=== PATIENT | female | born 1995 | race African-American/Black ===

== ENCOUNTER 2020-03-22 14:54 | Emergency (ER) | payer SELFPAY ==
[2020-03-22 16:16] LABS: Urine Blood 3+ (NEG); Urine Glucose NEGATIVE (NEG); Urine Protein 2+ (NEG); Urine Specific Gravity 1.025 (1.005-1.030); Urine pH 5.5 (5.0-7.0)
[2020-03-22 16:17] LABS: Urine Specific Gravity 1.025 (1.005-1.030)
--- NOTE | 2020-03-22 17:04 | ER ---
Nurse's Notes [facility] Name: Lexie Matias Age: 24 yrs Sex: Female : 1995 Arrival Date: 03/22/2020 Time: 14:58 Bed 28 Private MD: Diagnosis: Irregular menstruation, unspecified Presentation: 03/22 15:18 Chief complaint: Patient states: I have been on my period for 2 weeks. I am starting to ca1 see clots, like big clots I have never seen before. I have irregular periods but they're never this long. Coronavirus screen: Client denies travel out of the [place] in the last 14 days. At this time, the client does not indicate any symptoms associated with coronavirus-19. Ebola Screen: Patient negative for fever greater than or equal to 101.5 degrees Fahrenheit, and additional compatible Ebola Virus Disease symptoms Patient denies exposure to infectious person. Patient denies travel to an Ebola-affected area in the 21 days before illness onset. No symptoms or risks identified at this time. Initial Sepsis Screen: Does the patient meet any 2 criteria? No. Patient's initial sepsis screen is negative. Does the patient have a suspected source of infection? No. Patient's initial sepsis screen is negative. Risk Assessment: Do you want to hurt yourself or someone else? Patient reports no desire to harm self or others. Onset of symptoms was March 22, 2020. 15:18 Method Of Arrival: Ambulatory ca1 15:18 Acuity: DEBBIE 3 ca1 Triage Assessment: 16:40 General: Appears in no apparent distress. Behavior is calm, cooperative. 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 - Social history:: Smoking status: . Screenin:14 Abuse screen:. Nutritional screening: No deficits noted. Tuberculosis screening: No iw symptoms or risk factors identified. Fall Risk None identified. Assessment: 16:30 General: Appears in no apparent distress. Behavior is calm, cooperative. Pain: Denies iw pain. Neuro: No deficits noted. Level of Consciousness is awake, alert, obeys commands, Oriented to person, place, time, situation, Moves all extremities. Full function. Cardiovascular: Patient's skin is warm and dry. Respiratory: Airway is patent Respiratory effort is even, unlabored, Respiratory pattern is regular, symmetrical. : Reports vaginal bleeding that is. Derm: Skin is intact, is healthy with good turgor. Musculoskeletal: Range of motion: intact in all extremities. Vital Signs: 15:18 BP 121 / 84; Pulse 68; Resp 18 S; Temp 97.8(TE); Pulse Ox 100% on R/A; Weight 99.79 kg ca1 (R); Height 5 ft. 2 in. (157.48 cm) (R); Pain 0/10; 15:18 Body Mass Index 40.24 (99.79 kg, 157.48 cm) ca1 ED Course: 14:58 Patient arrived in ED. as 15:05 Livia Valencia FNP-C is PHCP. kb 15:05 Jacinto Coppola MD is Attending Physician. kb 15:18 Arm band placed on right wrist. ca1 15:19 Triage completed. ca1 16:17 Patient taken to ultrasound. via wheelchair. is 16:19 Breonna Woody, RN is Primary Nurse. iw 16:30 Patient has correct armband on for positive identification. iw 16:43 Ultrasound completed. Patient tolerated well. is 16:43 Patient moved back from ultrasound. is 17:14 No provider procedures requiring assistance completed. Patient did not have IV access iw during this emergency room visit. Administered Medications: No medications were administered Outcome: 17:03 Discharge ordered by MD. kb 17:14 Discharged to home ambulatory. iw 17:14 Condition: good 17:14 Discharge instructions given to patient, Instructed on discharge instructions, follow up and referral plans. Demonstrated understanding of instructions, follow-up care. 17:15 Patient left the ED. iw Signatures: Livia Valencia FNP-C FNP-Julia Melendez as Breonna Woody RN RN iw Charlene Hawkins RN RN ca1 Barbara, Shameka is Corrections: (The following items were deleted from the chart) 15:20 15:18 Chief complaint: Patient states: I have been on my period for 2 weeks. I am ca1 starting to see clots, like big clots I have never seen before. ca1
--- NOTE | 2020-03-22 17:04 | EDPHYS ---
Physician Documentation [facility] Name: Lexie Matias Age: 24 yrs Sex: Female : 1995 Arrival Date: 03/22/2020 Time: 14:58 Bed 28 Private MD: ED Physician Jacinto Coppola HPI: 03/22 17:01 This 24 yrs old Black Female presents to ER via Ambulatory with complaints of Vaginal kb Bleeding. 17:01 The patient presents with vaginal bleeding that is light, with clots. Onset: The kb symptoms/episode began/occurred 2 week(s) ago. Modifying factors: The symptoms are alleviated by nothing, the symptoms are aggravated by nothing. Associated signs and symptoms: Pertinent positives: vaginal bleeding, Pertinent negatives: constipation, cramping, diarrhea, dyspareunia, dysuria, fever, hematuria, nausea, urinary frequency, vaginal discharge, vomiting. Severity of symptoms: At their worst the symptoms were moderate, in the emergency department the symptoms are unchanged. The patient is sexually active. The patient has not experienced similar symptoms in the past. The patient has not recently seen a physician. 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 - Social history:: Smoking status: . ROS: 17:00 Constitutional: Negative for fever, chills, and weight loss, Cardiovascular: Negative kb for chest pain, palpitations, and edema, Respiratory: Negative for shortness of breath, cough, wheezing, and pleuritic chest pain, Abdomen/GI: Negative for abdominal pain, nausea, vomiting, diarrhea, and constipation, MS/Extremity: Negative for injury and deformity, Skin: Negative for injury, rash, and discoloration, Neuro: Negative for headache, weakness, numbness, tingling, and seizure. 17:00 : Positive for vaginal bleeding. Exam: 16:59 Constitutional: This is a well developed, well nourished patient who is awake, alert, kb and in no acute distress. Chest/axilla: Normal chest wall appearance and motion. Nontender with no deformity. No lesions are appreciated. Cardiovascular: Regular rate and rhythm with a normal S1 and S2. No gallops, murmurs, or rubs. Normal PMI, no JVD. No pulse deficits. Respiratory: Lungs have equal breath sounds bilaterally, clear to auscultation and percussion. No rales, rhonchi or wheezes noted. No increased work of breathing, no retractions or nasal flaring. Abdomen/GI: Soft, non-tender, with normal bowel sounds. No distension or tympany. No guarding or rebound. No evidence of tenderness throughout. Skin: Warm, dry with normal turgor. Normal color with no rashes, no lesions, and no evidence of cellulitis. MS/ Extremity: Pulses equal, no cyanosis. Neurovascular intact. Full, normal range of motion. Neuro: Awake and alert, GCS 15, oriented to person, place, time, and situation. Cranial nerves II-XII grossly intact. Motor strength 5/5 in all extremities. Sensory grossly intact. Cerebellar exam normal. Normal gait. Vital Signs: 15:18 BP 121 / 84; Pulse 68; Resp 18 S; Temp 97.8(TE); Pulse Ox 100% on R/A; Weight 99.79 kg ca1 (R); Height 5 ft. 2 in. (157.48 cm) (R); Pain 0/10; 15:18 Body Mass Index 40.24 (99.79 kg, 157.48 cm) ca1 MDM: 16:19 Patient medically screened. kb 16:59 Data reviewed: vital signs, nurses notes. Data interpreted: Pulse oximetry: on room air kb is 100 %. Interpretation: normal. Counseling: I had a detailed discussion with the patient and/or guardian regarding: the historical points, exam findings, and any diagnostic results supporting the discharge/admit diagnosis, lab results, radiology results, the need for outpatient follow up, an OB/Gyne specialist, to return to the emergency department if symptoms worsen or persist or if there are any questions or concerns that arise at home. 03/22 15:31 Order name: Urine --Ancillary (enter results) kb 03/22 15:32 Order name: Urine Dipstick--Ancillary (enter results) kb 03/22 15:20 Order name: Urine Test (obtain specimen); Complete Time: 17:02 kb 03/22 15:31 Order name: US Transvaginal Study (Probe) kb 03/22 16:17 Order name: Urine Dipstick-Ancillary; Complete Time: 16:18 [facility] 03/22 16:17 Order name: Urine --Ancillary; Complete Time: 16:18 [facility] 03/22 15:20 Order name: Urine Dipstick-Ancillary (obtain specimen); Complete Time: 17:02 Administered Medications: No medications were administered Disposition: 17:45 Co-signature as Attending Physician, Jacinto Coppola MD. rn Disposition: 03/22/20 17:03 Discharged to Home. Impression: Irregular menstruation, unspecified. - Condition is Stable. - Discharge Instructions: Abnormal Uterine Bleeding, [id number]. - Medication Reconciliation Form, Thank You Letter, Antibiotic Education, Prescription Opioid Use form. - Follow up: Emergency Department; When: As needed; Reason: Worsening of condition. Follow up: Private Physician; When: 2 - 3 days; Reason: Recheck today's complaints, Continuance of care, Re-evaluation by your physician. Signatures: Dispatcher [employer] [facility] Livia Valencia, HOT TAMALE MAN-C HOT TAMALE MAN-Ckb Breonna Woody RN RN Jacinto Montiel MD MD actuarial internship: (The following items were deleted from the chart) 17:15 17:03 03/22/2020 17:03 Discharged to Home. Impression: Irregular menstruation, iw unspecified. Condition is Stable. Discharge Instructions: Abnormal Uterine Bleeding, [id number]. Forms are Medication Reconciliation Form, Thank You Letter, Antibiotic Education, Prescription Opioid Use. Follow up: Emergency Department; When: As needed; Reason: Worsening of condition. Follow up: Private Physician; When: 2 - 3 days; Reason: Recheck today's complaints, Continuance of care, Re-evaluation by your physician. kb
--- NOTE | 2020-03-22 17:37 | RAD REPORT ---
EXAM DESCRIPTION: US - Transvaginal Study Probe - 03/22/2020 4:43 pm CLINICAL HISTORY: Heavy vaginal bleeding COMPARISON: none FINDINGS: The uterus measures 9 x 4 x 5cm. A fibroid is not seen. The endometrial stripe measures 6 millimeters. 2.5 centimeter multilocular cystic mass is present within the cervix. Most of the cysts vary in size 2-4 millimeters The ovaries are normal in size and echotexture. The right and left adnexa unremarkable No significant free fluid is seen. IMPRESSION: 2.5 centimeter multilocular cystic mass within the cervix may represent adenoma malignum or a benign process
[2020-03-25 21:43] VITALS: BP 121/84; TEMP 97.8; O2SAT 100
== END 2020-03-22 17:15 | disposition home or self-care (01) ==
LOC: ER 14:54
DX: N92.6 Irregular menstruation, unspecified (principal)
CPT/HCPCS: 76830; 81003; 81025; 99284

== ENCOUNTER 2020-10-30 21:12 | Emergency (ER) | payer BC, SELFPAY ==
--- OUTSIDE RECORDS SUMMARY | 2020-10-30 21:14 | XMS REPORT | Continuity of Care Document ---
:1995 Author Organization [facility] t Address [address] [place] [address] Care Team Providers Name Role Phone Aakash Rosas DO Attending Clinician John Martin Attending Clinician Problems This patient has no known problems. Allergies, Adverse Reactions, Alerts This patient has no known allergies or adverse reactions. Medications This patient has no known medications. Procedures This patient has no known procedures. 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
[2020-10-31 01:43] LABS: Urine Blood Negative (Negative); Urine Glucose Negative (Negative); Urine Protein Negative (Negative); Urine Specific Gravity 1.025 (1.005-1.030)
[2020-10-31] MEDS ORDERED: NA CHLORIDE 0.9% 1,000 ML ONE (01:49)
[2020-10-31 01:56] LABS: Barbiturates NEGATIVE (NEGATIVE); Benzodiazepines NEGATIVE (NEGATIVE); Cocaine NEGATIVE (NEGATIVE); METHAMPHETAM NEGATIVE (NEGATIVE); Methadone NEGATIVE (NEGATIVE); Opiates NEGATIVE (NEGATIVE); Phencyclidine NEGATIVE (NEGATIVE); THC Cannibis NEGATIVE (NEGATIVE)
[2020-10-31 02:14] LABS: ALT/SGPT 66 U/L (12-78); AST/SGOT 30 U/L (15-37); Alkaline Phosphatase 78 U/L (45-117); BUN Blood Urea Nitrogen 15 mg/dL (7-18); Bicarbonate 28 mmol/L (21-32); Bilirubin Direct < 0.1 mg/dL (0-0.2); Bilirubin Total 0.2 mg/dL (0.2-1.0); Glucose Level 89 mg/dL (74-106); Potassium 3.6 mmol/L (3.5-5.1); Protein, Total 7.8 g/dL (6.4-8.2); Sodium Level 142 mmol/L (136-145)
[2020-10-31 02:30] LABS: Absolute Lymphocytes (CBC) 3.9 K/uL (0.7-4.9); Basophils % 0.6 % (0-1.3); Hematocrit 39.1 % (36.0-45.0); Lymphocytes % 41.4 % (15.3-44.8); MPV 8.2 fL (7.6-11.3); RBC Red Blood Cell Count 4.55 M/uL (3.86-4.86)
--- NOTE | 2020-10-31 03:18 | EDPHYS ---
Physician Documentation [facility] Name: Lexie Matias Age: 25 yrs Sex: Female : 1995 Arrival Date: 10/30/2020 Time: 21:26 Bed 17 Private MD: ED Physician Roshan Louis HPI: 10/31 01:29 This 25 yrs old Black Female presents to ER via Ambulatory with complaints of Dizziness.mh7 01:29 The patient presents with dizziness, lightheadedness. Onset: The symptoms/episode mh7 began/occurred 1 week(s) ago. Context: occurred at an unknown location, occurred while the patient was standing. Modifying factors: The symptoms are alleviated by nothing, the symptoms are aggravated by nothing. Associated signs and symptoms: Pertinent positives: headache, Pertinent negatives: abdominal pain, agitation, ataxia, blurred vision, chest pain, combativeness, confusion, diaphoresis, focal weakness, head injury, near-syncope, numbness, palpitations, seizure, shortness of breath, syncope, tingling, vomiting. Severity of symptoms: At their worst the symptoms were moderate 7 day(s) ago, in the emergency department the symptoms have improved moderately. Patient's baseline: Neuro: alert and fully oriented, Motor: no deficits, Ambulation: walks without assistance, Speech: normal. 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 - Social history:: Smoking status: Patient denies any tobacco usage or history of. ROS: 10/31 01:29 Constitutional: Negative for fever, chills, and weight loss, Eyes: Negative for injury, mh7 pain, redness, and discharge, ENT: Negative for injury, pain, and discharge, Neck: Negative for injury, pain, and swelling, Cardiovascular: Negative for chest pain, palpitations, and edema, Respiratory: Negative for shortness of breath, cough, wheezing, and pleuritic chest pain, Back: Negative for injury and pain, : Negative for injury, bleeding, discharge, and swelling, MS/Extremity: Negative for injury and deformity, Skin: Negative for injury, rash, and discoloration, Neuro: Negative for headache, weakness, numbness, tingling, and seizure, Psych: Negative for depression, anxiety, suicide ideation, homicidal ideation, and hallucinations, Allergy/Immunology: Negative for hives, rash, and allergies, Endocrine: Negative for neck swelling, polydipsia, polyuria, polyphagia, and marked weight changes, Hematologic/Lymphatic: Negative for swollen nodes, abnormal bleeding, and unusual bruising. Exam: 01:29 Constitutional: This is a well developed, well nourished patient who is awake, alert, mh7 and in no acute distress. Head/Face: Normocephalic, atraumatic. Eyes: Pupils equal round and reactive to light, extra-ocular motions intact. Lids and lashes normal. Conjunctiva and sclera are non-icteric and not injected. Cornea within normal limits. Periorbital areas with no swelling, redness, or edema. Neck: Trachea midline, no thyromegaly or masses palpated, and no cervical lymphadenopathy. Supple, full range of motion without nuchal rigidity, or vertebral point tenderness. No Meningismus. Chest/axilla: Normal chest wall appearance and motion. Nontender with no deformity. No lesions are appreciated. Cardiovascular: Regular rate and rhythm with a normal S1 and S2. No gallops, murmurs, or rubs. Normal PMI, no JVD. No pulse deficits. Respiratory: Lungs have equal breath sounds bilaterally, clear to auscultation and percussion. No rales, rhonchi or wheezes noted. No increased work of breathing, no retractions or nasal flaring. Abdomen/GI: Soft, non-tender, with normal bowel sounds. No distension or tympany. No guarding or rebound. No evidence of tenderness throughout. Back: No spinal tenderness. No costovertebral tenderness. Full range of motion. Skin: Warm, dry with normal turgor. Normal color with no rashes, no lesions, and no evidence of cellulitis. MS/ Extremity: Pulses equal, no cyanosis. Neurovascular intact. Full, normal range of motion. Neuro: Awake and alert, GCS 15, oriented to person, place, time, and situation. Cranial nerves II-XII grossly intact. Motor strength 5/5 in all extremities. Sensory grossly intact. Cerebellar exam normal. Normal gait. Psych: Awake, alert, with orientation to person, place and time. Behavior, mood, and affect are within normal limits. Vital Signs: 10/30 23:07 BP 134 / 86; Resp 16 S; Temp 97.1(TE); Weight 102.51 kg (R); Height 5 ft. 3 in. (160.02 bb cm) (R); Pain 0/10; 10/31 01:00 BP 110 / 78; Pulse 63; Resp 19; Pulse Ox 99% on R/A; ea 02:00 BP 105 / 66; Pulse 65; Resp 18; Pulse Ox 99% on R/A; ea 03:11 BP 94 / 59; Pulse 67; Resp 17; Pulse Ox 100% on R/A; ea 03:26 BP 100 / 58; Pulse 68; Resp 18; Pulse Ox 98% on R/A; ea 10/30 23:07 Body Mass Index 40.03 (102.51 kg, 160.02 cm) bb MDM: 03:16 Differential diagnosis: cardiac arrhythmia, hypovolemia, idiopathic dizziness, 7 near-syncope, . Data reviewed: vital signs, nurses notes, lab test result(s), CBC, electrolytes, urinalysis, urine drug screen, UPT: negative EKG, radiologic studies, CT scan. Data interpreted: Pulse oximetry: on room air is 100 %. Interpretation: normal. Counseling: I had a detailed discussion with the patient and/or guardian regarding: the historical points, exam findings, and any diagnostic results supporting the discharge/admit diagnosis, lab results, radiology results, the need for outpatient follow up, to return to the emergency department if symptoms worsen or persist or if there are any questions or concerns that arise at home. Response to treatment: the patient's symptoms have resolved after treatment, the patient's blood pressure is in an acceptable range, mental status has returned to baseline, the patient no longer shows bradycardia, the patient is not short of breath, the patient is not tachycardic, the patient's pain is gone, the patient's temperature has normalized. 03:18 Patient medically screened. [facility] 10/31 01:07 Order name: CBC with Diff; Complete Time: 02:35 [facility] 10/31 01:07 Order name: Basic Metabolic Panel; Complete Time: 02:35 [facility] 10/31 01:07 Order name: LFT's; Complete Time: 02:35 [facility] 10/31 01:07 Order name: UDS; Complete Time: 02:35 [facility] 10/31 01:33 Order name: CT Head Brain wo Cont [facility] 10/31 01:42 Order name: Urine Dipstick-Ancillary; Complete Time: 02:35 [facility] 10/31 01:07 Order name: Urine Dipstick-Ancillary (obtain specimen); Complete Time: 01:49 [facility] 10/31 01:07 Order name: Urine Test (obtain specimen); Complete Time: 01:49 [facility] 10/31 01:33 Order name: EKG - Nurse/Tech; Complete Time: 03:10 [facility] Administered Medications: 01:48 Drug: NS 0.9% 1000 ml Route: IV; Rate: 1000 ml; Site: right antecubital; bb 03:00 Follow up: Response: No adverse reaction; IV Status: Completed infusion; IV Intake: ea 1000ml Disposition Summary: 10/31/20 03:18 Discharge Ordered Location: Home [facility] Problem: an ongoing problem [facility] Symptoms: have improved [facility] Condition: Stable [facility] Diagnosis - Dizziness and giddiness [facility] - Headache [facility] Followup: [facility] - With: Private Physician - When: 1 - 2 days - Reason: Worsening of condition, Recheck today's complaints, Continuance of care, Re-evaluation by your physician Discharge Instructions: - Discharge Summary Sheet [facility] - Dizziness [facility] - General Headache Without Cause [facility] Forms: - Medication Reconciliation Form [facility] - Thank You Letter [facility] - Antibiotic Education [facility] - Prescription Opioid Use [facility] Signatures: Dispatcher [employer] Savannah Mensah, ELIZABETH RN Roshan Brennan MD MD 7 Carlie Mott RN, ea
--- NOTE | 2020-10-31 03:18 | ER ---
Nurse's Notes [facility] Name: Lexie Matias Age: 25 yrs Sex: Female : 1995 Arrival Date: 10/30/2020 Time: 21:26 Bed 17 Private MD: Diagnosis: Dizziness and giddiness;Headache Presentation: 10/30 23:07 Chief complaint: Patient states: she was sick a week ago with diarrhea which went away bb but now she is dizzy and having headaches. Coronavirus screen: At this time, the client does not indicate any symptoms associated with coronavirus-19. Ebola Screen: No symptoms or risks identified at this time. Initial Sepsis Screen: Does the patient meet any 2 criteria? No. Patient's initial sepsis screen is negative. Does the patient have a suspected source of infection? No. Patient's initial sepsis screen is negative. Risk Assessment: Do you want to hurt yourself or someone else? Patient reports no desire to harm self or others. Onset of symptoms was October 23, 2020. 23:07 Method Of Arrival: Ambulatory bb 23:07 Acuity: DEBBIE 3 bb Triage Assessment: 23:08 General: Appears in no apparent distress. Behavior is calm, cooperative. Pain: Denies bb pain. Neuro: Level of Consciousness is awake, alert, obeys commands, Oriented to person, place, time, situation. Cardiovascular: Capillary refill < 3 seconds Patient's skin is warm and dry. Respiratory: Respiratory effort is even, unlabored. GI: No deficits noted. Derm: Skin is pink, warm \T\ dry. Musculoskeletal: Circulation, motion, and sensation intact. 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 - Social history:: Smoking status: Patient denies any tobacco usage or history of. Screenin/18 00:17 Abuse screen: Denies threats or abuse. Nutritional screening: No deficits noted. ea Tuberculosis screening: No symptoms or risk factors identified. Fall Risk None identified. Assessment: 01:20 General: Appears in no apparent distress. Behavior is calm, cooperative, appropriate ea for age. Pain: Denies pain. Neuro: Level of Consciousness is awake, alert, obeys commands, Oriented to person, place, time. Cardiovascular: Patient's skin is warm and dry. Respiratory: Airway is patent Respiratory effort is even, unlabored, Respiratory pattern is regular, symmetrical. Derm: Skin is pink, warm \T\ dry. 02:34 Reassessment: Patient and/or family updated on plan of care and expected duration. Pain ea level reassessed. Patient is alert, oriented x 3, equal unlabored respirations, skin warm/dry/pink. 03:10 Reassessment: Patient and/or family updated on plan of care and expected duration. Pain ea level reassessed. Patient is alert, oriented x 3, equal unlabored respirations, skin warm/dry/pink. Provider at bedside updating pt on plan of care. 03:25 Reassessment: Patient and/or family updated on plan of care and expected duration. Pain ea level reassessed. Patient is alert, oriented x 3, equal unlabored respirations, skin warm/dry/pink. Discharge instruction given to patient verbalized the understanding of instruction. Pt left ED ambulatory tolerating well. Vital Signs: 10/30 23:07 BP 134 / 86; Resp 16 S; Temp 97.1(TE); Weight 102.51 kg (R); Height 5 ft. 3 in. (160.02 bb cm) (R); Pain 0/10; 10/31 01:00 BP 110 / 78; Pulse 63; Resp 19; Pulse Ox 99% on R/A; ea 02:00 BP 105 / 66; Pulse 65; Resp 18; Pulse Ox 99% on R/A; ea 03:11 BP 94 / 59; Pulse 67; Resp 17; Pulse Ox 100% on R/A; ea 03:26 BP 100 / 58; Pulse 68; Resp 18; Pulse Ox 98% on R/A; ea 10/30 23:07 Body Mass Index 40.03 (102.51 kg, 160.02 cm) bb ED Course: 10/30 21:26 Patient arrived in ED. ds1 23:08 Triage completed. bb 23:08 Arm band placed on Patient placed in waiting room, Patient notified of wait time. bb 10/31 00:13 Roshan Louis MD is Attending Physician. mh7 00:17 Carlie Mott, RN is Primary Nurse. ea 00:18 Patient has correct armband on for positive identification. Bed in low position. Call ea light in reach. 02:00 CT Head Brain wo Cont In Process Unspecified. EDMS 03:27 No provider procedures requiring assistance completed. IV discontinued, intact, ea bleeding controlled, No redness/swelling at site. Pressure dressing applied. Administered Medications: 01:48 Drug: NS 0.9% 1000 ml Route: IV; Rate: 1000 ml; Site: right antecubital; aric 03:00 Follow up: Response: No adverse reaction; IV Status: Completed infusion; IV Intake: ea 1000ml Intake: 03:00 IV: 1000ml; Total: 1000ml. ea Outcome: 03:18 Discharge ordered by . [facility] 03:27 Discharged to home ambulatory, with family. ea 03:27 Condition: stable 03:27 Discharge instructions given to patient, Instructed on discharge instructions, follow up and referral plans. Demonstrated understanding of instructions, follow-up care. 03:27 Patient left the ED. ea Signatures: Dispatcher [employer] [facility] Dona Mack ds1 Savannah Roth RN RN Carlie Harry, Roshan Gant RN, ea, MD MD 7 Corrections: (The following items were deleted from the chart) 03:11 03:10 Reassessment: Patient and/or family updated on plan of care and expected ea duration. Pain level reassessed. Patient is alert, oriented x 3, equal unlabored respirations, skin warm/dry/pink. ea
[2020-10-31 03:34] VITALS: TEMP 97.1
[2020-10-31 03:40] VITALS: BP 100/58; O2SAT 98
--- NOTE | 2020-10-31 17:17 | RAD REPORT ---
EXAM DESCRIPTION: CT Head Without Intravenous Contrast CLINICAL HISTORY: The patient is 25 years old and is Female; Dizziness;Headache TECHNIQUE: Axial computed tomography images of the head/brain without intravenous contrast. Sagitt al and coronal reformatted images were created and reviewed. This CT exam was performed using one o r more of the following dose reduction techniques: automated exposure control, adjustment of the mA and/or kV according to patient size, and/or use of iterative reconstruction technique. COMPARISON: No relevant prior studies available. FINDINGS: Brain: Unremarkable. No hemorrhage. No significant white matter disease. No edema. Ventricles: Unremarkable. No ventriculomegaly. Bones/joints: Unremarkable. No acute fracture. Soft tissues: Unremarkable. Sinuses: Unremarkable as visualized. Mastoid air cells: Unremarkable as visualized. No mastoid effusion. IMPRESSION: No acute intracranial abnormality. Electronically signed by: Angel Tony MD 10/31/2020 2:14 AM CDT Due to temporary technical issues with the PACS/Fluency reporting system, reports are being signed by the in house radiologists without review as a courtesy to insure prompt reporting. The interpreting radiologist is fully responsible for the content of the report.
== END 2020-10-31 03:27 | disposition home or self-care (01) ==
LOC: ER 21:12
DX: R51.9 Headache, unspecified (principal)
CPT/HCPCS: 93005; 85025; 80048; 36415; 80076; 81003; 80307; 70450; 96360; 99283; J7030